=== PATIENT | female | born 1960 | race Caucasian/White ===

== ENCOUNTER 2016-07-23 16:46 | Emergency (ER) | payer OTHER ==
[~2016-07-23] VITALS: Ht 157.5 cm; Wt 81.2 kg
[2016-07-23 16:46] VITALS: BP 144/92; PULSE 89; RESP 18; TEMP 97.6; O2SAT 98
--- NOTE | 2016-07-23 16:59 | NUR ---
Patient triaged and placed in waiting room. VSS and patient appears in no acute distress at this time. Accompanied by SPOUSE, awaiting available bed, and MD notified of need for MSE.
[2016-07-23 17:32] LABS: BASOPHILS # (AUTO) 0.3 K/uL (0.0-0.2); BASOPHILS % (AUTO) 2.2 % (0.0-2.0); EOSINOPHILS # (AUTO) 0.2 K/uL (0.0-0.4); EOSINOPHILS % (AUTO) 1.3 % (0.0-4.0); HEMATOCRIT 39.5 % (36-48); HEMOGLOBIN 12.9 g/dL (12.0-16.0); LYMPHOCYTES # (AUTO) 1.7 K/uL (1.0-5.5); LYMPHOCYTES % (AUTO) 14.7 % (20.5-51.5); MEAN CORPUSCULAR HEMOGLOBIN 27 pg (27-31); MEAN CORPUSCULAR HGB CONC 33 % (32-36); MEAN CORPUSCULAR VOLUME 82 fL (79.0-98.0); MONOCYTES # (AUTO) 0.5 K/uL (0.0-1.0); MONOCYTES % (AUTO) 4.6 % (1.7-9.3); NEUTROPHILS # (AUTO) 8.9 K/uL (1.8-7.7); NEUTROPHILS % (AUTO) 77.2 % (40.0-70.0); PLATELET COUNT (AUTO) 449 K/uL (130-430); RED BLOOD CELL COUNT(AUTO) 4.84 MIL/uL (4.2-6.2); WHITE BLOOD COUNT (AUTO) 11.6 K/uL (4.8-10.8)
[2016-07-23 17:39] LABS: BILIRUBIN,URINE 1+ (NEGATIVE); BLOOD, URINE NEGATIVE (NEGATIVE); CLARITY/URINE SL HAZY (CLEAR); COLOR,URINE YELLOW (YELLOW); GLUCOSE,URINE NEGATIVE (NEGATIVE); KETONES,URINE NEGATIVE (NEGATIVE); LEUKOCYTE ESTERASE ,URINE NEGATIVE (NEGATIVE); NITRITE, URINE NEGATIVE (NEGATIVE); PH,URINE 5.5 (5.0-8.0); PROTEIN URINE 2+ (NEGATIVE); UROBILINOGEN,URINE 0.2 (0.2-1.0)
[2016-07-23 17:44] LABS: PROTHROMBIN TIME 11.3 SECS (9.5-12.5)
[2016-07-23 17:59] LABS: CALCIUM 9.6 mg/dL (8.4-11.0); CREATININE 1.55 mg/dL (0.55-1.30); POTASSIUM 3.8 mmol/L (3.5-5.1)
[2016-07-23 18:06] LABS: ALBUMIN 3.4 g/dL (3.4-4.8); TOTAL BILIRUBIN 0.3 mg/dL (0.0-1.0); TOTAL PROTEIN, SERUM 8.5 g/dL (6.4-8.3)
[2016-07-23 18:26] LABS: BACTERIA,URINE FEW /HPF (None Seen); RBC,URINE NONE SEEN /HPF (0-3); WBC,URINE 0-3 /HPF (0-3)
[2016-07-23 18:28] LABS: MUCUS,URINE 1+ /LPF (None Seen)
--- NOTE | 2016-07-23 18:32 | NUR ---
TAKEN TO RADIOLOGY FOR ULTRASOUND
--- NOTE | 2016-07-23 19:15 | NUR ---
Patient to ER bed 2 to gown for evaluation. Side rails up.
--- NOTE | 2016-07-23 19:20 | NUR ---
PT IS AOX4, C/O ABDOMINAL PAIN X 4 DAYS, (-)N/V WITH PAIN SCALE 8/10 STATED BY THE PT. PT WAS SEEN AT OTHER HOSPITAL AND FOR REMOVAL OF GALLBLADDER BUT NO ROOMS AVAILABLE AND SUGGEST TO GO TO OTHER HOSPITAL.
--- NOTE | 2016-07-23 19:35 | NUR ---
ER at bedside examining patient.
[2016-07-23] MEDS ORDERED: PIPERACILLIN/TAZO 3.375 GM in NS 50 ML IV ONE (20:15)
[2016-07-23] MEDS ORDERED: PIPERACILLIN/TAZOBACTAM 3.375 GM/VIAL (ZOSYN) IV ONE (20:35)
[2016-07-23] MEDS ORDERED: OXYC-130 PO (22:02)
[2016-07-23] MEDS ORDERED: VALS160T2 PO (22:02)
[2016-07-23] MEDS ORDERED: 0.45% NACL 1,000 ML IV ONE (23:00)
[2016-07-24] MEDS ORDERED: KETOROLAC TROMETHAMINE 30 MG VIAL IVP ONE (00:15)
[2016-07-24 01:10] VITALS: BP 125/75; PULSE 71; RESP 18; TEMP 97.6; O2SAT 98
--- NOTE | 2016-07-24 01:10 | NUR ---
Patient to be transferred to [facility] . Is being transferred due to higher level of care. Receiving facility has accepting physician and available space. ER physician has signed transfer form. Patient or responsible democrat has agreed to transfer and signed form. Patient belongings inventoried and will be sent with patient. Copy of nursing notes, lab reports, EKG, Physicians Orders and X-rays to be sent with patient. Report called to LIZETH DWYER at receiving facility. Receiving physician is . [facility] has been called for transfer.
[2016-07-24] MEDS ORDERED: cefTRIAXone 1 GM IVPB PREMIX 50 ML IV SCH (09:00)
[2016-07-24] MEDS ORDERED: PANTOPRAZOLE SODIUM 40 MG TAB PO SCH (09:00)
== END 2016-07-24 01:10 | disposition home or self-care (01) ==
LOC: SED 16:46
DX: K81.9 Cholecystitis, unspecified (principal); I10 Essential (primary) hypertension
CPT/HCPCS: 36415; 76700; 80053; 81000; 83605; 83690; 85025; 85610; 85730; 87040; 96365; 96375; 99285; J1885; J2543